=== PATIENT | male | born 1980 | race Caucasian/White ===

== ENCOUNTER 2020-02-26 14:09 | Outpatient (REF) | payer MEDICARE, MEDICAID, SELFPAY ==
[2020-02-26 15:29] LABS: Alanine Aminotransferase 66 U/L (0-40); Albumin Level 4.8 g/dL (3.5-5.0); Alkaline Phosphatase 74 U/L (39-117); Aspartate Amino Transferase 55 U/L (5-37); Bilirubin Direct < 0.2 mg/dL (0.0-0.5); Bilirubin Total 0.2 mg/dL (0.0-1.0); Total Protein 7.5 g/dL (6.5-8.0)
[2020-02-26 16:24] LABS: Phenytoin Dilantin 3.6 ug/mL (10.0-20.0)
== END 2020-02-26 14:10 | disposition home or self-care (01) ==
LOC: HO.LAB 14:09
PROVIDERS: PCP Psychiatry & Neurology Neurology; Visit Provider Psychiatry & Neurology Neurology
DX: G40.909 Epilepsy, unspecified, not intractable, without status epilepticus (principal)
CPT/HCPCS: 80076; 80185

== ENCOUNTER 2020-06-18 10:20 | Outpatient (REF) | payer MEDICARE, MEDICAID, SELFPAY ==
[2020-06-18 11:23] LABS: Alanine Aminotransferase 61 U/L (0-40); Albumin Level 4.6 g/dL (3.5-5.0); Alkaline Phosphatase 70 U/L (39-117); Aspartate Amino Transferase 30 U/L (5-37); Bilirubin Direct 0.2 mg/dL (0.0-0.5); Bilirubin Total 0.3 mg/dL (0.0-1.0); Total Protein 7.1 g/dL (6.5-8.0)
[2020-06-18 12:05] LABS: Phenytoin Dilantin 2.8 ug/mL (10.0-20.0)
== END 2020-06-18 10:21 | disposition home or self-care (01) ==
LOC: HO.LAB 10:20
PROVIDERS: PCP Internal Medicine; Visit Provider Psychiatry & Neurology Neurology
DX: G40.909 Epilepsy, unspecified, not intractable, without status epilepticus (principal)
CPT/HCPCS: 36415; 80076; 80185

== ENCOUNTER 2022-12-16 13:43 | Outpatient (REF) | payer MEDICARE, MEDICAID, SELFPAY ==
[2022-12-16 14:18] LABS: MANUAL DIFF FLAG NO
[2022-12-16 14:26] LABS: Basophils Absolute Auto 0.1 X10*3/uL (0.0-0.2); Basophils Percent Auto 1.4 % (0-2); Eosinophils Absolute Auto 0.1 X10*3/uL (0.0-0.4); Eosinophils Percent Auto 1.6 % (0-4); Hematocrit 45.3 % (42.0-52.0); Hemoglobin 15.6 g/dl (14.0-18.0); Imm Gran Abs Auto 0.02 X10*3/uL (0.00-0.03); Imm Gran Pct Auto 0.3 % (0.0-0.4); Lymphocytes Absolute Auto 1.8 X10*3/uL (1.2-4.9); Lymphocytes Percent Auto 25.2 % (20-40); Mean Corpuscular HGB Conc 34.4 g/dl (31.0-36.0); Mean Corpuscular Hemoglobin 33.8 pg (27.0-33.0); Mean Corpuscular Volume 98.1 fL (80.0-98.0); Mean Platelet Volume 8.4 fL (9.4-12.4); Monocytes Absolute Auto 0.9 X10*3/uL (0.1-1.2); Monocytes Percent Auto 11.8 % (2-11); Neutrophils Absolute Auto 4.4 x10*3/uL (2.0-8.3); Neutrophils Percent Auto 59.7 % (45-73); Platelet Count 274 X10*3/uL (160-400); Red Blood Count 4.62 X10*6/uL (4.60-5.80); Red Cell Distribution Width 12.4 % (11.0-16.0); White Blood Count 7.3 X10*3/uL (4.8-10.8)
[2022-12-16 15:06] LABS: Alanine Aminotransferase 24 U/L (0-40); Albumin Level 4.9 g/dL (3.5-5.0); Alkaline Phosphatase 64 U/L (39-117); Anion Gap 16 (12-20); Aspartate Amino Transferase 35 U/L (5-37); Bilirubin Total 0.2 mg/dL (0.0-1.0); Blood Urea Nitrogen 9 mg/dL (9-16); Calcium 10.4 mg/dL (8.4-10.2); Carbon Dioxide 23 mmol/L (22-29); Chloride 107 mmol/L (96-108); Cholesterol 186 mg/dL (<200); Estimated Glomerular Filt Rate > 60; Glucose Random 81 mg/dL (60-115); HDL Cholesterol 65 mg/dL (>40); LDL Cholesterol Calculated 105 mg/dL (<100); Potassium 4.4 mmol/L (3.3-5.1); Sodium 142 mmol/L (135-145); Total Protein 7.9 g/dL (6.5-8.0); Triglycerides 80 mg/dL (<150)
[2022-12-16 15:20] LABS: TSH reflex Free T4 0.99 uIU/mL (0.32-4.0)
[2022-12-17 03:43] LABS: HIV AB/AG Nonreactive (Nonreactive); HIV Num 1 0.06 S/CO (0.00-0.99); ~HepC Num1 0.05 S/CO (0.00-0.79); ~Hepatitis C Antibody Nonreactive (Nonreactive)
[2022-12-21 12:28] LABS: VITAMIN D (1,25 OH) D3 38 pg/mL; Vit D (1,25-Dihydroxy) Total 38 pg/mL (18-72); Vitamin D (1,25 OH) D2 <8 pg/mL
== END 2022-12-16 13:44 | disposition home or self-care (01) ==
LOC: HO.CHCLDS 13:43
PROVIDERS: Visit Provider Family Medicine
DX: Z11.4 Encounter for screening for human immunodeficiency virus [HIV] (principal); E55.9 Vitamin D deficiency, unspecified; Z79.899 Other long term (current) drug therapy
CPT/HCPCS: 36415; 80053; 80061; 82652; 84443; 85025; 86803; 87389

== ENCOUNTER 2023-01-03 16:12 | Outpatient (REF) | payer MEDICARE, MEDICAID, SELFPAY ==
[2023-01-03 17:28] LABS: MANUAL DIFF FLAG NO
[2023-01-03 17:33] LABS: Basophils Absolute Auto 0.1 X10*3/uL (0.0-0.2); Basophils Percent Auto 1.2 % (0-2); Eosinophils Absolute Auto 0.1 X10*3/uL (0.0-0.4); Hemoglobin 15.8 g/dl (14.0-18.0); Imm Gran Abs Auto 0.03 X10*3/uL (0.00-0.03); Imm Gran Pct Auto 0.4 % (0.0-0.4); Lymphocytes Absolute Auto 2.3 X10*3/uL (1.2-4.9); Lymphocytes Percent Auto 27.6 % (20-40); Mean Corpuscular HGB Conc 33.6 g/dl (31.0-36.0); Mean Corpuscular Hemoglobin 33.1 pg (27.0-33.0); Mean Corpuscular Volume 98.5 fL (80.0-98.0); Mean Platelet Volume 8.9 fL (9.4-12.4); Monocytes Absolute Auto 0.8 X10*3/uL (0.1-1.2); Monocytes Percent Auto 9.4 % (2-11); Neutrophils Percent Auto 60.4 % (45-73); Platelet Count 232 X10*3/uL (160-400); Red Blood Count 4.77 X10*6/uL (4.60-5.80); Red Cell Distribution Width 12.4 % (11.0-16.0); White Blood Count 8.2 X10*3/uL (4.8-10.8)
[2023-01-03 18:19] LABS: Folate 13.8 ng/mL (> or = 4.0); Vitamin B12 337 pg/mL (200-900)
== END 2023-01-03 16:13 | disposition home or self-care (01) ==
LOC: HO.CHCLDS 16:12
PROVIDERS: Visit Provider Family Medicine
DX: D75.89 Other specified diseases of blood and blood-forming organs (principal)
CPT/HCPCS: 36415; 82607; 82746; 85025

== ENCOUNTER 2024-11-26 11:13 | Outpatient (REF) | payer MEDICARE, MEDICAID, SELFPAY ==
--- NOTE | ~2024-11-26 | XR_ITS ---
EXAMINATION: XR RIBS 3 VIEWS MINIMUM WITH CHEST RIGHT HISTORY: R07.89 - Other chest pain COMPARISON: There are no prior studies available for comparison. FINDINGS: A single PA view of the chest and 4 views of the right ribs are submitted. The lungs are expanded and clear. There is no pleural effusion, pneumothorax, or pulmonary vascular congestion. The heart is normal in size. There is a minimally displaced fracture of the right 10th rib. XR/XR ribs RT min 3V w CXR1V IMPRESSION: Minimally displaced fracture of the right 10th rib. The lungs are clear. Electronically signed by: Young Russ MD 11/26/2024 12:31 PM EDT
== END 2024-11-26 11:14 | disposition home or self-care (01) ==
LOC: HO.HMGCX 11:13
PROVIDERS: PCP Internal Medicine; Visit Provider Nurse Practitioner Family
DX: R07.89 Other chest pain (principal)
CPT/HCPCS: 71101; 99202

== ENCOUNTER 2024-11-26 11:13 | Outpatient (AMB) | payer MEDICARE, MEDICAID, SELFPAY ==
--- NOTE | 2024-11-26 11:41 | MHC.OFFWIV ---
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 Pt was getting up from a sitting position, got lightheadedness and Fell to the ground hitting his Chest wall. He does Have h/o COPD with chronic Wheezing. Reports SOB, Pain with moving Air in/out of Lungs, Pain with Standing up and side to side movements. FORMERLY [facility], [facility]–1983 Medical History (Updated 11/26/24 @ 11:59 by Keesha Vanessa NP) Acute chest wall pain Review of Systems Const All systems reviewed & are unremarkable except as noted in HPI and below Physical Exam Vital Signs: Last Vital Signs Pulse 88 11/26/24 11:44 BP 140/80 H 11/26/24 11:44 Pulse Ox 96 11/26/24 11:44 Oxygen Delivery Method Room Air 11/26/24 11:44 BMI result Body Mass Index 25.1 Const General: no acute distress and poor hygiene; No comfortable Orientation/consciousness: patient oriented x3 Chest Chest palpation & inspection: no crepitus, localized rib tenderness with anteroposterior compression (Right side chest wall), no masses and tenderness rib and costochondral junction Resp Effort & Inspection: normal respiratory effort Auscultation: no crackles, no rales, no rhonchi and wheezes scattered wheezes Cardio Heart sounds: S1 normal heart sound present and S2 normal heart sound present Neuro General: patient oriented x3 and moves all extremities Psych Speech and movement: Normal speech and movement present Assessment & Plan Assessment & Plan (1) Acute chest wall pain: Code(s): R07.89 - Other chest pain Plan: Ordered Chest and Ribs Xrays to r/o Fx vs Pneumothorax. Ordered NSAIDs and Acetaminophen for pain relief Ice/Hot and Rest Ordered Flexeril. Orders: Orders XR ribs RT min 3V w CXR1V Today R07.89 - Other chest pain Medications: New acetaminophen 1,000 mg (2 x 500 mg) PO Q6H 30 caps 0RF pain R07.89 - Other chest pain cyclobenzaprine 10 mg PO BEDTIME 14 tabs 0RF Chest wall pain R07.89 - Other chest pain ibuprofen 800 mg PO Q8H 20 tabs 0RF R07.89 - Other chest pain Coding Level of Care Code New Pt Level 4 (44926) Diagnoses Acute chest wall pain R07.89 Time Spent (min) 20
[2024-11-26 11:44] VITALS: BP 140/80; PULSE 88; O2SAT 96; BMI 25.1
--- OUTSIDE RECORDS SUMMARY | 2024-11-26 13:54 | XMS_ITS | Clinical Summary ---
Author Organization [facility] Address [address] [place] [address] Phone Care Team Providers Care Thread Clipper Name Role Phone Nazanin Christianson MD Primary Care Provider [phone] Allergies Active Allergy Reactions Criticality Noted Date Comments Penicillin V Potassium Rash 07/23/2008 Medications folic acid (FOLVITE) 1 mg tablet Take 1 tablet (1,000 mcg total) by mouth 1 (one) time each day. 07/23/2019 Active levETIRAcetam (KEPPRA) 1,000 mg tablet Take 1 tablet (1,000 mg total) by mouth 2 (two) times a day. 01/11/2022 Active levETIRAcetam (KEPPRA) 750 mg tablet Take 1 tablet (750 mg total) by mouth 2 (two) times a day. 03/31/2021 Active OXcarbazepine (TRILEPTAL) 300 mg tablet Take 1 Tab by mouth 2 times daily. 07/17/2019 Active oxyCODONE-acetam inophen (PERCOCET) 5-325 mg per tablet 03/04/2021 Activ e thiamine (Vitamin B-1) 100 mg tablet Take 100 mg by mouth daily. Active traMADoL (ULTRAM) 50 mg tablet Take 1 tablet (50 mg total) by mouth every 6 (six) hours. Max Daily Amount: 200 mg 01/25/2022 Active Active Problems Problem Noted Date Diagnosed Date Lumbar radiculopathy 04/06/2021 Overview (03/13/2024): Pt seems symptomatic from the left L5-S1 disc herniation Last Assessment & Plan: Patient had sudden onset left buttock and posterior thigh pain to the posterior knee starting 03/16/2021 after heavy lifting. On his lumbar MRI he has multiple levels with disc herniations however he seems symptomatic from his left L5-S1 disc herniation. He has no weakness on exam. He has not tried oral steroids, PT, cortisone injections for this acute pain. I gave him a prescription for Decadron x4 days, with Pepcid to protect his stomach, instructed him not to take NSAIDs with the steroids. I gave him a prescription for PT if he can tolerate it, if pain is better after steroids. We reviewed his MRI images in detail, discussed other treatment options like RIVKA, acupuncture, possible left L5-S1 minimally invasive discectomy if pain is not improving. I will review his MRI with Dr. Gonsales to see if she agrees with left L5-S1 minimally invasive discectomy as an option. All questions answered on today's visit. I asked the patient to call with an update after completing his steroids. If he is not improving with time, we can further discuss surgery options, risks and benefits. I reviewed pt's MRI LS with Dr. Gonsales, she will offer left L5-S1 discectomy if he is not getting better with current plan. Seizure ([facility] V24, [facility] V28) 07/23/2008 Surgical History Surgery Date Site/Laterality Comments OTHER SURGICAL HISTORY PROCEDURE: ID CRANIECTOMY HMTMA SUPRATENTORIAL EXTRA/SUBDURAL WISDOM TOOTH EXTRACTION PROCEDURE: HISTORICAL WISDOM TEETH EXTRACTION Medical History Medical History Date Comments Seizures ([facility] V24, [facility] V28) DX:Seizures ([facility]); COMMENT: grand-mal Asthma DX:Asthma Family History Medical History Relation Name Comments Heart attack Father Relation Name Status Comments Father Social History Tobacco Use Types Packs/Day Years Used Date Smoking Tobacco: Every Day Cigarettes Smokeless Tobacco: Never Alcohol Use Standard Drinks/Week Comments No 0 (1 standard drink = 0.6 oz pur e alcohol) Sex and Gender Information Value Date Recorded Sex Assigned at Not on file Legal Sex Male 8:30 PM EST Gender Identity Not on file Sexual Orientation Not on file Obstetrics History Last Filed Vital Signs Vital Sign Reading Time Taken Comments Blood Pressure - - Pulse - - Temperature - - Respiratory Rate - - Oxygen Saturation - - Inhaled Oxygen Concentration - - Weight 101 kg (223 lb) 03/30/2022 3:16 PM EST Height 188 cm (6' 2 ) 03/30/2022 3:16 PM EST Body Mass Index 28.63 03/30/2022 3:16 PM EST Plan of Treatment Health Maintenance Due Date Last Done Comments Hepatitis B Vaccines (1 of 3 - 19+ 3-dose series) 1998 Pneumococcal Vaccine: Pediatrics (0 to 5 Years) and At-Risk Patients (6 to 49 Years) (1 of 2 - PCV) 1998 Colorectal Cancer Screening: Colonoscopy 02/20/2022 HIV Screening 02/20/2022 Hepatitis C Screening 02/20/2022 Medicare Annual Wellness Visit 02/20/2022 Social Influencers of Health Screening 02/20/2022 Depression Screening 03/21/2024 COVID-19 Vaccine (1 - 2023-2 5 season) 2024 Influenza Vaccine (#1) 2024 DTaP,Tdap,and Td Vaccines (2 - Td or Tdap) 06/20/2027 06/19/2017 Cholesterol Screening (Lipid Panel) 12/17/2027 12/16/2022, 05/24/2019 HIB Vaccines Aged Out No longer eligi ble based on patient's age to complete this topic HPV Vaccines Aged Out No longer eligi ble based on patient's age to complete this topic Hepatitis A Vaccines Aged Out No long er eligible based on patient's age to complete this topic IPV Vaccines Aged Out No longer eligi ble based on patient's age to complete this topic MMR Vaccines Aged Out No longer eligi ble based on patient's age to complete this topic Meningococcal ACWY Vaccine Aged Out N o longer eligible based on patient's age to complete this topic Meningococcal B Vaccine Aged Out No l onger eligible based on patient's age to complete this topic RSV Immunization Patients Under 20 months Aged Out No longer eligible b ased on patient's age to complete this topic Varicella Vaccines Aged Out No longer eligible based on patient's age to complete this topic Procedures Procedure Name Priority Date/Time Associated Diagnosis Comments LIPID PANEL Routine 05/24/2019 from Last 3 Months or Most Recently Relevant to Health Maintenance Results * Lipid panel (05/24/2019) LDL/HDL Ratio 3 0 - 4 Triglycerides 122 0 - 150 mg/dL Cholesterol 154 0 - 200 mg/dL HDL 57 >=40 mg/dL LDL Cholesterol 73 0 - 100 mg/dL Blood Venous blood specimen / Unknown us Historical Provider LAB BLOOD ORDERABLES Sona l Result from Last 3 Months or Most Recently Relevant to Health Maintenance Insurance MEDICARE [place]ICAID [place] Care Teams Thread Clipper Relationship Specialty Start Date End Date Nazanin Christianson MD [address] [place] [id number] PCP - General Family Medicine 09/06/24
--- OUTSIDE RECORDS SUMMARY | 2024-11-26 13:54 | XMS_ITS | Encounter Summary ---
Author Organization [employer] Address [address] [facility] [place] [address] Care Team Providers Care Hair Dryer Name Role Phone Nazanin Christianson MD Primary Care Provider [phone] Greer Clemons MD Unavailable [phone] Reason for Visit * Reason Onset Date Comments Call back request 10/18/2023 Encounter Details Date Type Department Care Team (Late st Contact Info) Description 10/18/2023 Telephone [facility] MEDICINE [address] [place] [address] Nazanin Christianson MD [address] [place] [address] Call back request Social History Tobacco Use Types Packs/Day Years Used Date Smoking Tobacco: Every Day Cigarettes Passive Smoke Exposure: Never Smokeless Tobacco: Never Alcohol Use Standard Drinks/Week Comments Never 0 (1 standard drink = 0.6 oz pur e alcohol) Depression Answer Date Recorded Patient Health Questionnaire-9 Score 7 12/16/2022 Housing Stability Answer Date Recorded What is your housing situation today? I have david darden 01/03/[address] you li ve. Do you have problems with any of the following? None of the above 01/03/2023 Food Insecurity Answer Date Recorded Within the past 12 months, y ou worried that your food would run out before you got money to buy more: Never True 01/03/2023 Within the past 12 months,th e food you bought just didn't last and you didn't have enough money to get more: Never True Transportation Answer Date Recorded In the past 12 months, has l ack of transportation kept you from medical appts, meetings, work or from getting things needed for daily living? No 01/03/2023 Utilities Answer Date Recorded In the past 12 months, has t he electric, gas, oil or water company threatened to shut off services in your home? No 01/03/2023 Depression Answer Date Recorded Patient Health Questionnaire-2 Score 1 12/16/2022 Sex and Gender Information Value Date Recorded Sex Assigned at Male 10/27/2022 3:50 PM EDT Legal Sex Male 3:48 PM EDT Gender Identity Male 10/27/2022 3:50 PM EDT Sexual Orientation Don't know 10/27/2022 3: 50 PM EDT documented as of this encounter Miscellaneous Notes * Telephone Encounter - Wing Renee RN - 10/27/2023 12:19 PM EDT Tc to pt to relay normal X-ray and PCP note to start inhale meds and for follow- up. Pt reports muchrelief with medication for COPD and ankle is doing alright. * Telephone Encounter - Rafal Johnson - 10/27/2023 12:07 PM EDT Tc from pt returning phone call for X-ray results. * Telephone Encounter - Wing Renee RN - 10/27/2023 12:00 PM EDT Tc to pt regarding concerns. Pt was wondering why he was on new inhalers prescribed on 10/19. Explained that it was likely from PCP reviewing PFT and assessing pt had COPD and needed these new inhalers. Also reminded pt of upcoming appt for follow-up with PCP on 11/17 at 8;45 am. Pt was apparently unaw are of this appt. Pt also inquired about recent X-ray results. Found that X-ray results were normal in chart, attempted to relay to pt. Unable to reach pt, left message for pt to call back. 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 * Telephone Encounter - Justin Hernandez - 10/18/2023 4:29 PM EDT Tc from pt calling in regards to pulmonary function test. Pt had test done at [facility] ([address] [place] [address]), but after he had already got it done he received a call from [facility] for the same test. Pt wanted to clarify if there was a mistake in the addresses for the order. Please contact pt at [phone]. documented in this encounter Plan of Treatment Not on file documented as of this encounter Visit Diagnoses Not on filedocumented in this encounter Additional Health Concerns Assessment Noted Time PHQ-9 Depression Total Score: 7 12/17/19 23 1:05 PM EDT documented as of this encounter Care Teams Hair Dryer Relationship Specialty Start Date End Date Nazanin Christianson MD [address] [place] [phone] PCP - General Family Medicine 12/16/22 Greer Clemons MD [address] [place] [address] [place] [address] Neurology 12/16/22 documented as of this encounter
--- OUTSIDE RECORDS SUMMARY | 2024-11-26 13:54 | XMS_ITS | Encounter Summary ---
Author Organization [employer] Address [address] [facility] [address] [place] [address] Care Team Providers Care Hand Tube Bender Name Role Phone Nazanin Christianson MD Primary Care Provider [phone] Greer Clemons MD Unavailable [phone] Reason for Visit * Reason Onset Date Comments New Patient 11/04/2022 Encounter Details Date Type Department Care Team ([facility] st Contact Info) Description 11/04/2022 Telephone [facility] MEDICINE [address] [place], [place] [phone] Jass Don MD [address] [place], [place] [phone] New Patient Social History Tobacco Use Types Packs/Day Years Used Date Smoking Tobacco: Never Assessed Sex and Gender Information Value Date Recorded Sex Assigned at Male 10/27/2022 3:50 PM EDT Legal Sex Male 3:48 PM EDT Gender Identity Male 10/27/2022 3:50 PM EDT Sexual Orientation Don't know 10/27/2022 3: 50 PM EDT documented as of this encounter Miscellaneous Notes * Telephone Encounter - Rafal Velasco Alex - 11/04/2022 12:55 PM EDT PAR Rafal Velasco called pt to Offer [employer]ATOR ASSEMBLER appt. Pt demographics and insurance information were verified. Pt reports the following medical conditions: Epilepsy Pt is not taking any medication at this time. Pt given [employer]AB[employer]IC[employer] ASSEMBLER appt with Dr. Nazanin Christianson on 12/16/2022 @ 1:00 pm. Pt will be sent appt reminder card and medical release form and agrees to complete and to return to medical records prior to [employer] ASSEMBLER appt. documented in this encounter Plan of Treatment Not on file documented as of this encounter Visit Diagnoses Not on filedocumented in this encounter Care Teams Hand Tube Bender Relationship Specialty Start Date End Date Nazanin Christianson MD [address] [place] [phone] PCP - General Family Medicine 12/16/22 Greer Clemons MD [address] [place] [phone] Neurology 12/16/22 Casie Ortiz MD [address] [place] [id number] Surgeon Thoracic Surgery 08/25/23 08/30/23 documented as of this encounter
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
--- OUTSIDE RECORDS SUMMARY | 2024-11-26 13:55 | XMS_ITS | Encounter Summary ---
Author Organization [employer] Address [address] [place] [address] Care Team Providers Care Product Manager Name Role Phone Nazanin Christianson MD Primary Care Provider [phone] Greer Clemons MD Unavailable [phone] Reason for Visit * Reason Onset Date Comments Med Refill 11/15/2024 Encounter Details Date Type Department Care Team (Late st Contact Info) Description 11/15/2024 Telephone [facility] MEDICINE [address] [place] [address] Nazanin Christianson MD [address] [place] [address] Med Refill Social History Tobacco Use Types Packs/Day Years [...] encounter Miscellaneous Notes * Telephone Encounter - Alvina Mortensen LPN - 11/15/2024 9:45 AM EDT Medication not prescribed by PCP. * Telephone Encounter - Gloria Morgan - 11/15/2024 9:29 AM EDT TC from pt requesting medication refill. Medications needing refill : - thiamine (,Vitamin B-1,) 100 MG tablet To be sent to: - [id number] - [place] - [address] [facility] [address] [facility] [address] documented in this encounter Plan of Treatment Not on file documented as of this encounter Visit Diagnoses Not on filedocumented in this encounter Additional Health Concerns Assessment Noted Time PHQ-9 Depression Total Score: 0 01/27/20 24 8:38 AM EST documented as of this encounter Care Teams Product Manager Relationship Specialty Start Date End Date Nazanin Christianson MD [address] [place] [address] PCP - General Family Medicine 12/16/22 Greer Clemons MD [address] [place] [address] [place] [address] Neurology 12/16/22 documented as of this encounter
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
== END 2024-11-26 12:41 | disposition home or self-care (01) ==
PROVIDERS: PCP Internal Medicine; Visit Provider Nurse Practitioner Family
DX: R07.89 Other chest pain (principal)

== ENCOUNTER → 2024-11-26 12:02 | Outpatient (BNV) | payer MEDICARE, MEDICAID, SELFPAY | PROVIDERS: PCP Internal Medicine; Visit Provider Radiology Diagnostic Radiology | DX: S22.31XA Fracture of one rib, right side, initial encounter for closed fracture (principal) | CPT/HCPCS: 71101 ==

== ENCOUNTER 2024-12-17 08:16 | Outpatient (AMB) | payer MEDICARE, MEDICAID, SELFPAY ==
--- OUTSIDE RECORDS SUMMARY | 2024-12-17 08:27 | XMS_ITS | Clinical Summary ---
Author Organization [facility] Address [address] [place] [address] Phone Care Team Providers Care Craft Worker Name Role Phone Nazanin Christianson MD Primary Care Provider [phone] Allergies Active Allergy Reactions Criticality Noted Date [...] not getting better with current plan. Seizure ([facility] V24, [facility] V28) 07/23/2008 Surgical History Surgery Date Site/Laterality Comments OTHER SURGICAL HISTORY PROCEDURE: ME CRANIECTOMY HMTMA SUPRATENTORIAL EXTRA/SUBDURAL WISDOM TOOTH EXTRACTION PROCEDURE: HISTORICAL WISDOM TEETH EXTRACTION Medical History Medical History Date Comments Seizures ([facility] V24, [facility] V28) DX:Seizures (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
--- OUTSIDE RECORDS SUMMARY | 2024-12-17 08:27 | XMS_ITS | Encounter Summary ---
Author Organization [employer] Address [address] [facility] [address] 7[address] [place] [address] Care Team Providers Care Development Representative Name Role Phone Nazanin Christianson MD Primary Care Provider [phone] Greer Clemons MD Unavailable + [phone] Reason for Visit * Reason Onset Date Comments Call back request 10/18/2023 Encounter Details Date Type Department Care Team (Late st Contact Info) Description 10/18/2023 Telephone [facility] MEDICINE [address] [place] [address] Nazanin Christianson MD [address] [place] [address] Call back request Social History Tobacco Use [...] AM EDT Tc from pt requesting status education dean. * Telephone Encounter - Justin Hernandez - 10/18/2023 4:29 PM EDT Tc from pt calling in regards to pulmonary function test. Pt had test done at [facility] ([address] [place] [address]), but after he had already got it done he received a call from [facility] for the same test. Pt wanted to clarify if there was a mistake in the addresses for the order. Please contact pt at [phone]. documented in this encounter Plan of Treatment Not on file documented as of this encounter Visit Diagnoses Not on filedocumented in this encounter Additional Health Concerns Assessment Noted Time PHQ-9 Depression Total Score: 7 12/17/19 23 1:05 PM EDT documented as of this encounter Care Teams Development Representative Relationship Specialty Start Date End Date Nazanin Christianson MD [address] [place] [id number] PCP - General Family Medicine 12/16/22 Greer Clemons MD [address] [place] [address] [place] [address] Neurology 12/16/22 documented as of this encounter
--- OUTSIDE RECORDS SUMMARY | 2024-12-17 08:27 | XMS_ITS | Encounter Summary ---
Author Organization [employer] Address [address] [facility] 7t [place] [address] Care Team Providers Care Extension Associate Name Role Phone Nazanin Christianson MD Primary Care Provider [phone] Greer Clemons MD Unavailable + [phone] Reason for Visit * Reason Onset Date Comments New Patient 11/04/2022 Encounter Details Date Type Department Care Team ([facility] st Contact Info) Description 11/04/2022 Telephone [facility] MEDICINE [address] [place], [place] [phone] Jass Don MD [address] [place], [place] [phone] New Patient Social History Tobacco Use Types [...] PAR Rafal Velasco called pt to Offer ASSESSMENT SERVICES MANAGER appt. Pt demographics and insurance information were verified. Pt reports the following medical conditions: Epilepsy Pt is not taking any medication at this time. Pt given ASSESSMENT SERVICES MANAGER appt with Dr. Nazanin Christianson on 12/16/2022 @ 1:00 pm. Pt will be sent appt reminder card and medical release form and agrees to complete and to return to medical records prior to ASSESSMENT SERVICES MANAGER appt. documented in this encounter Plan of Treatment Not on file documented as of this encounter Visit Diagnoses Not on filedocumented in this encounter Care Teams Extension Associate Relationship Specialty Start Date End Date Nazanin Christianson MD [address] [place] [address] PCP - General Family Medicine 12/16/22 Greer Clemons MD [address] [place] [address] Neurology 12/16/22 Casie Ortiz MD [address] [place] [address] Surgeon Thoracic Surgery 08/25/23 08/30/23 documented as of this encounter
--- OUTSIDE RECORDS SUMMARY | 2024-12-17 08:28 | XMS_ITS | Encounter Summary ---
Author Organization [employer] Address [address] [facility] [place] [address] Care Team Providers Care Solar Project Manager Name Role Phone Nazanin Christianson MD Primary Care Provider [phone] Greer Clemons MD Unavailable + [phone] Reason for Visit * Reason Onset Date Comments Med Refill 11/15/2024 Encounter Details Date Type Department Care Team (Late st Contact Info) Description 11/15/2024 Telephone [facility] MEDICINE [address] [place] [address] Nazanin Christianson MD [address] [place] [address] Med Refill Social History Tobacco Use Types [...] MG tablet To be sent to: - [id number] - [place] - [address] [facility] [address] [facility] [address] documented in this encounter Plan of Treatment Not on file documented as of this encounter Visit Diagnoses Not on filedocumented in this encounter Additional Health Concerns Assessment Noted Time PHQ-9 Depression Total Score: 0 01/27/20 24 8:38 AM EST documented as of this encounter Care Teams Solar Project Manager Relationship Specialty Start Date End Date Nazanin Christianson MD [address] [facility] [place] [address] PCP - General Family Medicine 12/16/22 Greer Clemons MD [address] [place] [address] [place] [address] Neurology 12/16/22 documented as of this encounter
--- OUTSIDE RECORDS SUMMARY | 2024-12-17 08:28 | XMS_ITS | Clinical Summary ---
Author Organization [employer] Address [address] [facility] 7t [place] [address] Care Team Providers Care Senior Asset Manager Name Role Phone Nazanin Christianson MD Primary Care Provider [phone] Greer Clemons MD Unavailable + [phone] Allergies Active Allergy Reactions Criticality Noted Date [...] obstructive pulmonary disease, unspecified COPD type (CMS/HCC) ([facility]) Place 1 capsule (18 mcg) into inhaler and inhale in the morning. 30 capsule 11 4 Active folic acid (Folvite) 1 MG tablet Take 1 tablet (1,000 mcg) by mouth Once per day. 120 tablet 3 4 Active albuterol 108 (90 Base) MCG/ACT inhalerIndicatio ns:Chronic obstructive pulmonary disease, unspecified COPD type (CMS/HCC) ([facility]) Inhale 2 puffs every 4 (four) hours [...] obstructive pulmonary disease, unspecified COPD type (CMS/HCC) (HCC) Take 1 tablet (50 mg) by mouth [...] of the ankle, knee, and fibula at [facility] - Prescribe diclofenac for pain relief - [...] prednisone for 5 days - Refer to station agent for further evaluation of possible COPD - [...] Center 01/27/2024 8:45 AM Nazanin Christianson MD [facility] Chronic cough 10/14/2023 Assessment & Plan [...] his incentive spirometer daily. Of note, called [place] office of Dr. Ortiz, per office, was [...] Consider x ray if persistent. Seizure disorder (CMS/HCC) 12/16/2022 Assessment & Plan (07/31/2024 9:45 AM EDT): Following with neurology, monitor labs for AED. Assessment & Plan (12/16/2022 1:42 PM EDT): Following in [facility] Neurology, reviewed meds, will send screening labs [...] Type Department Care Team Description 11/15/2024 Telephone [facility] MEDICINE [address] [place] [phone] Nazanin Christianson MD Med Refill from Last 3 Months Immunizations Immunization Administration [...] of 2 - PCV) 1998 COVID-19 Vaccine (2023-2 5 season) 2024 Influenza Vaccine (#1) 2024 [...] PM EDT) Hepatitis C Antibody Nonreactive Nonreactive [facility] Comment:Antibodies to HCV no t detected; does not exclude early acuteHCV infection. Blood 12/16/2022 1:48 PM EDT 12/16/2022 2:13 PM EDT us Nazanin Christianson MD LAB BLOOD ORDERABLES Final Re sult Performing Organization Address [facility] Co de Phone Number [facility] [address] [place] [address] [phone] * HIV Ab/Ag (PETER CERDA) (12/16/2022 1:48 PM EDT) HIV AB/AG Nonreactive Nonreactive [facility] Comment:HIV-1 p24 Ag and/or HIV-1/HIV-2 Ab not detected.A test result that is nonreactive does not exclude thepossibility of exposure to or infection with HIV-1 and/orHIV-2. Nonreactive results in this assay for individualswith prior exposure to HIV-1 and/or HIV-2 may be due toantigen and antibody levels that are below the limit ofdetection of this assay.The [employer] HIV Ag/Ab Combo assay result andsupplemental assay results should be interpreted inconjunction with the patient's clinical presentation,history and other laboratory results. If the results areinconsistent with clinical evidence, additional testing issuggested to confirm the result. 12/16/2022 1:48 PM EDT 12/16/2022 2:13 PM EDT us Nazanin Christianson MD LAB BLOOD ORDERABLES Final Re sult Performing Organization Address [facility]/ZIP Co de Phone Number [facility] [address] [place] [phone] * (ABNORMAL) Lipid Panel, Standard (12/16/2022 1:48 PM EDT) Triglycerides 80 <150 mg/dL [facility] Comment:Desirable Triglyceri de: less than 150 mg/dLBorderline High Triglyceride 150-199 mg/dLHigh Triglyceride: 200-499 mg/dLVery High Triglyceride: greater than or equal to 5OO mg/dL Cholesterol 186 <200 mg/dL [facility] Comment:Desirable Cholestero l: less than 200 mg/dLBorderline High Cholesterol: 200-239 mg/dLHigh Cholesterol: greater than 239 mg/dL LDL Cholesterol Calculated 105(H) <100 mg/dL [facility] Comment:Desirable LDL: less than 100 mg/dLNear Optimal/Above Optimal LDL: 110- 129 mg/dLBorderline High LDL: 130-159 mg/dLHigh LDL: 160-189 mg/dLVery High LDL: greater than or equal to 190 mg/dL HDL Cholesterol 65 >40 mg/dL [facility] Comment:Desirable HDL: great er than 40 mg/dL Note: This HDL assay may give artificially low results in patients with liver disease. Blood Venous blood specimen / Unknown 12/16/2022 1:48 PM EDT 12/16/2022 2:13 PM EDT us Nazanin Christianson MD LAB BLOOD ORDERABLES Final Re sult [facility] [address] [place] [phone] from Last 3 Months or Most Recently Relevant to Health Maintenance Insurance [facility] [employer] MEDICARE Care Teams Senior Asset Manager Relationship Specialty Start Date End Date Nazanin Christianson MD [address] [facility] [place] [address] PCP - General Family Medicine 12/16/22 Greer Clemons MD [address] [place] [address] [place] [address] Neurology 12/16/22
--- OUTSIDE RECORDS SUMMARY | 2024-12-17 08:28 | XMS_ITS | Encounter Summary ---
Author Organization [employer] Address [address] [facility] [address] [facility] [address] [address] 7t [place] [address] Care Team Providers Care Orthotic And Prosthetic Technician Name Role Phone Nazanin Christianson MD Primary Care Provider [phone] Greer Clemons MD Unavailable [phone] Reason for Visit * Reason Onset Date Comments ER Follow-up 08/26/2023 Encounter Details Date Type Department Care Team (Late st Contact Info) Description 08/26/2023 Telephone [facility] MEDICINE [address] [place] [address] Nazanin Christianson MD [address] [place] [address] ER Follow-up Social History Tobacco Use Types [...] pt in the chest. Pt went to [facility] and got an MRI, C-ray, and blood [...] agreement with plan. Requested ED note from [facility] stat, fax confirmation received. * Telephone Encounter - Rfaal Johnson - 08/29/2023 9:08 AM EDT Tc [...] documented as of this encounter Care Teams Orthotic And Prosthetic Technician Relationship Specialty Start Date End Date Nazanin Christianson MD [address] [place] [address] PCP - General Family Medicine 12/16/22 Greer Clemons MD [address] [place] [phone] Neurology 12/16/22 Casie Ortiz MD [address] [place] [address] Surgeon Thoracic Surgery 08/25/23 08/30/23 documented as of this encounter
--- NOTE | 2024-12-17 08:41 | A.OFFVIS_ITS ---
Intake Visit Reasons: 6M Allergies Penicillins Allergy (Unknown, Verified 12/17/24 08:46) Unknown Medication List - Last Reconciled 12/17/24 by Paola Adams CNP acetaminophen 1,000 mg (2 x 500 mg) PO Q6H cyclobenzaprine 10 mg PO BEDTIME fluticasone propion-salmeterol 230-21 mcg/actuation (Advair HFA) 2 puffs inhalation folic acid 1 mg PO DAILY ibuprofen 800 mg PO Q8H levetiracetam 1,000 mg PO BID oxcarbazepine orally 1 tablet in the morning and 2 tablets at bedtime; thiamine HCl (vitamin B1) (Vitamin B-1) 100 mg PO DAILY 90 days HPI Comments Details: 44-year-old man with h/o alcohol and marijuana abuse and seizure disorder. Seizures involved a warning of head cano feeling leading to passing out or just getting confused. Larger ones involved shaking all over and sometime bitten cheek. He was doing okay. He was taking oxcarbazepine and levetiracetam, no medication side effects. No seizures or spells. Sleep was up and down. [facility] Medical History (Updated 12/17/24 @ 08:44 by Paola Adams CNP) Acute chest wall pain Review of Systems Const Denies chills, Denies daytime sleepiness, Reports difficulty sleeping, Denies fatigue, Denies fever(s), Denies frequent falls, Denies headache(s), Denies increased appetite, Denies poor appetite, Denies snoring, Denies weakness, Denies weight gain and Denies weight loss Eyes Denies loss of vision ENT Denies vertigo, Denies dizziness and Denies headache(s) Card Denies chest pain at rest, Denies chest pain with activity, Denies syncope, Denies leg edema and Denies palpitations Resp Denies snoring GI Denies constipation, Denies heartburn, Denies diarrhea and Denies nausea Denies urinary frequency, Denies urinary incontinence and Denies urinary urgency Musc Denies abnormal gait, Denies numbness and Denies tingling Skin/Breast Denies dry skin and Denies rash Neuro Denies abnormal gait, Denies vertigo, Denies dizziness, Denies syncope, Denies frequent falls, Denies headache(s), Denies lack of coordination, Denies loss of vision, Denies memory loss, Denies numbness, Denies restless legs, Denies seizure-like activity, Denies tingling, Denies paresthesias, Denies tremor(s) and Denies weakness Psych Denies anxiety, Denies depression, Denies auditory hallucinations, Denies memory loss, Denies visual hallucinations and Denies suicidal ideation Endo Denies fatigue and Denies palpitations Physical Exam Const Other: General Appearance:? normal, in no acute distress. Skin:? no rashes, no significant birthmarks. Heart:? S1, S2 normal, no murmurs. Lungs:? clear anteriorly and posteriorly. Extremities:? no edema. Psych:? alert, oriented, cognitive function intact, cooperative with exam. Neuro Other: Mental Status:?Normal attention, orientation, memory and affect.? Cranial Nerves:?Pupils are equal, round and reactive to light. External occular muscles are intact. Visual horner are full. Face is symmetrical. Facial sensations are normal. Tongue is midline. Palate elevates symmetrically. Shoulder shrugging is normal. Hearing to bedside conversation is normal. Sensory Exam:?....? Coordination:?No ataxia,?no titubation.? Gait Exam: Within normal limits. Extrapyramidal System:?No tremor, rigidity with normal facial expressions.? Pronator Drift:?Not present.? Involuntary Movements:?No tremors seen.? Speech:?Normal.? Results Reviewed Results Reviewed: Amb EEG at [facility] in Mar 2018: abnormal with left frontal sharps associated with an episode of seizure Routine EEG in office in 2018: [facility] Routine EEG in office in August 2014: [facility] MRI brain WO at [facility] in 2010: [facility] Amb EEG in [facility] in 2014: OK with no events reported. Assessment & Plan Assessment & Plan (1) Epilepsy: Code(s): G40.909 - Epilepsy, unspecified, not intractable, without status epilepticus Category: Medical Qualifiers: Epilepsy type: unspecified Intractability: not intractable Status epilepticus: without status epilepticus Qualified Code(s): G40.909 - Epilepsy, unspecified, not intractable, without status epilepticus Plan: Continue oxcarbazepine 600mg 1 tablet in the morning and 2 tablets at bedtime. Continue levetiracetam 1000mg 1 tablet twice a day. Continue thiamine 100mg 1 tablet daily. Continue folic acid 1mg 1 tablet daily. Plan Meds tried: Dilantin, Oxcarbazepine, Depakote Medications: Changed From folic acid 1 mg PO DAILY To folic acid 1 mg PO DAILY 90 tabs 1RF 90 days Coding Level of Care Code Est Pt Level 4 (74492) Diagnoses Nonintractable epilepsy without status epilepticus, unspecified epilepsy type G40.909 Epilepsy type: unspecified Intractability: not intractable Status epilepticus: without status epilepticus
== END 2024-12-17 08:52 | disposition home or self-care (01) ==
LOC: HO.HSM 08:17
PROVIDERS: PCP Internal Medicine; Referring Provider Internal Medicine; Visit Provider Registered Nurse
DX: G40.909 Epilepsy, unspecified, not intractable, without status epilepticus (principal)
CPT/HCPCS: 99214

== ENCOUNTER → 2024-12-17 08:16 | Outpatient (BNVA) | payer MEDICARE, MEDICAID, SELFPAY | PROVIDERS: PCP Internal Medicine; Referring Provider Internal Medicine; Visit Provider Registered Nurse | DX: G40.909 Epilepsy, unspecified, not intractable, without status epilepticus (principal); F10.10 Alcohol abuse, uncomplicated; F12.10 Cannabis abuse, uncomplicated | CPT/HCPCS: 99212 ==

== ENCOUNTER 2025-03-18 09:57 | Emergency (ER) | payer MEDICARE, MEDICAID, SELFPAY ==
[2025-03-18 10:43] VITALS: BP 153/87; PULSE 79; RESP 16; TEMP 36.7; O2SAT 93; BMI 27.4
--- NOTE | 2025-03-18 10:47 | ED.GENADULT ---
HPI - General Adult General Chief complaint: Skin/Abscess/Foreign Body Stated complaint: Cyst On Back- Causing Pain, Trouble Sleeping Time Seen by Provider: 03/18/25 14:25 Source: patient, RN notes reviewed and other Mode of arrival: ambulatory Limitations: no limitations History of Present Illness ED Provider: Patricia Richter PA-C HPI narrative: ? Patient reports a cyst on the mid-back (right above T7 region, no over spinous process) that has been present since age 13. ? Two nights ago the lesion became acutely painful after the patient sat in a chair for about an hour with the area pressed against the seat back. ? Describes the area as ?black and blue? and ?screaming? in pain; baseline pain normally 1/10, currently severe. ? No prior home treatments attempted. ? States lesion is ?painful? and ?messy.? ? Denies any other self-care or interventions. ? Patient prefers procedure performed outside of a room due to not wanting to wait. NO IVDU Related Data Home Medications ?Medication ?Instructions ?Recorded ?Confirmed fluticasone propionate 230 2 puff inhalation 11/26/24 mcg-salmeterol 21 mcg/actuation HFA inhaler (Advair HFA) Previous Rx's ?Medication ?Instructions ?Recorded thiamine HCl (vitamin B1) 100 mg 100 mg PO DAILY 90 days #90 tabs 11/16/24 tablet (Vitamin B-1) acetaminophen 500 mg capsule 1,000 mg (2 x 500 mg) PO Q6H pain 11/26/24 #30 caps cyclobenzaprine 10 mg tablet 10 mg PO BEDTIME Chest wall pain 11/26/24 #14 tabs ibuprofen 800 mg tablet 800 mg PO Q8H #20 tabs 11/26/24 folic acid 1 mg tablet 1 mg PO DAILY 90 days #90 tabs 12/17/24 oxcarbazepine 600 mg tablet See Rx Instructions PO .COMPLEX 90 02/12/25 days #270 tabs levetiracetam 1,000 mg tablet 1,000 mg PO BID 90 days #180 tabs 02/27/25 sulfamethoxazole 800 1 tab PO BID #14 tabs 03/18/25 mg-trimethoprim 160 mg tablet (Bactrim DS) Allergies Allergy/AdvReac Type Severity Reaction Status Date / Time Penicillins Allergy Unknown Unknown Verified 03/18/25 10:46 Review of Systems Review of Systems: Yes all other systems are reviewed and are negative PMFSH Past Medical History Attestation statement: The following information was validated with the patient. Source: nursing notes reviewed Medical History Acute chest wall pain Physical Exam ED Exam Exam: Skin: Approximately 3 cm non fluctuant cyst with overlying ecchymosis on mid-back. Tender to palpation. to the left of spine obese, no distress, no other rashes on skin, no respiratory distress, no midline tenderness step-offs or deformties of spine. Vital Signs: Vital Signs - 24 hr 03/18/25 10:43 Temperature 98.1 F Pulse Rate 79 Respiratory Rate 16 Blood Pressure 153/87 H Pulse Oximetry 93 Oxygen Delivery Method Room Air BMI result Body Mass Index 27.4 Course Course Course Narrative: Rapid medical examination performed in triage by Tana Burr PA-C: Patient is a 44 year old male presenting to the emergency department with a mid back cyst vs. abscess. Patient states he has had this cyst on his back for years and recently it has started to bother him / grow. Detailed physical exam and review of systems are deferred to the summer nanny. Patient placed back in the waiting room pending room availability. Medical Decision Making Medical Decision Making MDM Narrative: Patient requested to get seen in hallway as he did not want to wait for a room. Aspiration of the cyst was attempted but unsuccessful, with no purulent material identified. Therefore, incision and drainage (I&D) was deferred at this time. The plan is to initiate warm compresses and oral antibiotics, with outpatient I&D to be performed if the lesion does not improve or if purulence develops. This approach is intended to reduce infection risk and facilitate resolution prior to procedural intervention. Citation: Oral antibiotics and warm compresses are appropriate initial management for inflamed cysts when no purulent collection is present; I&D is deferred until purulence is identified. Problem #1: Inflamed epidermal inclusion cyst, mid-back Assessment: Long-standing (since age 13) epidermal inclusion cyst now acutely inflamed and painful after recent mechanical irritation. Exam shows 3 cm fluctuant, tender lesion with discoloration. Plan: - Perform local anesthetic block. - Incision & drainage at bedside, place packing. - Send purulent material for culture. - Start trimethoprim-sulfamethoxazole DS (Bactrim DS). Citation: TMP-SMX is recommended as an oral antibiotic regimen after I&D of inflamed cysts when CA-MRSA is a concern, reducing treatment failure rates. - Provide wound care instructions and return precautions. - Outpatient follow-up as needed. Differential Diagnosis Differential Diagnoses: The differential diagnosis associated with the presentation includes abscess sebaceous cyst cellulitis Admission/Observation Consideration of admission/observation: Escalation of care including admission/observation considered Tests considered The following testing was considered but not selected: soft tissue ultrasound Prescription Management I considered prescription management with: Antibiotic Chronic Conditions Patient?s care impacted by: Other Social Determinants Patient?s care significantly limited by Social Determinants of Health including: Unemployment Discharge Plan Discharge Clinical Impression: Abscess of back Patient Disposition: Home, Self-Care Instructions: Abscess (ED) Additional Instructions: You have an abscess on your back that is a sabeceous cyst. This requires an excision. We did a puncture aspiration to see if I could give you minor relief, but there was no purulent drainage from it. it is infected. You have elected not to wait for an available room to have this procedure done here. You may return to have this done here or go to a local urgent care facility which should be able to do this procedure too. As it is infected, I will place your on oral antibiotic. At home, Please do moist heat compresses to the area, 15-20 mins 4-5x a day. Return for concerns. Prescriptions: New sulfamethoxazole-trimethoprim [Bactrim DS] 800-160 mg tablet 1 tab PO BID Qty: 14 0RF No Action thiamine HCl (vitamin B1) [Vitamin B-1] 100 mg tablet 100 mg PO DAILY 90 Days Qty: 90 1RF oxcarbazepine 600 mg tablet See Rx Instructions PO .COMPLEX 90 Days Qty: 270 1RF Rx Instructions: orally 1 tablet in the morning and 2 tablets at bedtime; levetiracetam 1,000 mg tablet 1,000 mg PO BID 90 Days Qty: 180 1RF folic acid 1 mg tablet 1 mg PO DAILY 90 Days Qty: 90 1RF fluticasone propion-salmeterol [Advair HFA] 230-21 mcg/actuation HFA aerosol inhaler 2 puff inhalation cyclobenzaprine 10 mg tablet 10 mg PO BEDTIME Qty: 14 0RF ibuprofen 800 mg tablet 800 mg PO Q8H Qty: 20 0RF acetaminophen 500 mg capsule 1,000 mg PO Q6H Qty: 30 0RF Interventions: ED Discharge Assessment Last Done: 03/18/25 15:55 Discharge Date/Time: 03/18/25 15:56 Print Language: [place] Citizen
[2025-03-18 15:55] VITALS: BP 153/87; PULSE 79; RESP 16; TEMP 36.7; O2SAT 93
--- OUTSIDE RECORDS SUMMARY | 2025-03-18 16:46 | XMS_ITS | Clinical Summary ---
Author Organization [facility] Address [address] [place] [address] Phone Care Team Providers Care Delivery Supervisor Name Role Phone Nazanin Christianson MD Primary Care Provider [phone] Allergies Active Allergy Reactions Criticality Noted Date Comments Penicillin 01/09/2025 Penicillin G 12/16/2022 Penicillin V Potassium Rash 07/23/2008 Medications folic acid (FOLVITE) 1 mg tablet Take 1 tablet (1,000 mcg total) by mouth 1 (one) time each day. 0 Active levETIRAcetam (KEPPRA) 1,000 mg tablet Take 1 tablet (1,000 mg total) by mouth 2 (two) times a day. 2 Active levETIRAcetam (KEPPRA) 750 mg tablet Take 1 tablet (750 mg total) by mouth 2 (two) times a day. 2 Active OXcarbazepine (TRILEPTAL) 300 mg tablet Take 1 Tab by mouth 2 times daily. 0 Active oxyCODONE-aceta minophen (PERCOCET) 5-325 mg per tablet 1 Active thiamine (Vitamin B-1) 100 mg tablet Take 100 mg by mouth daily. Active traMADoL (ULTRAM) 50 mg tablet Take 1 tablet (50 mg total) by mouth every 6 (six) hours. Max Daily Amount: 200 mg 2 Active albuterol HFA (PROAIR HFA ; PROVENTIL HFA ; VENTOLIN HFA) 90 mcg/actuation inhaler Inhale 2 puffs by mouth Every 4 hours as needed. 5 07/31/19 26 Active Pulmicort Flexhaler 90 mcg/actuation inhaler INHALE 1 PUFF IN THE MORNING AND AT BEDTIME . RINSE MOUTH WITH WATER AFTER USE TO REDUCE AFTER TASTE AND INCIDENCE OF CANDIDIASIS. DO NOT SWALLOW 5 Active umeclidinium-vi lanteroL (Anoro Ellipta) 62.5-25 mcg/actuation inhaler Inhale 1 puff by mouth 1 (one) time each day. 3 each 3 5 01/10/20 26 Active Active Problems Problem Noted Date Diagnosed [...] not getting better with current plan. Seizure 07/23/2008 Encounters Date Type Department Care Team Description 01/09/2025 10:12 AM EDT - 01/09/2025 11:59 PM EDT Hospital Encounter [facility] Xray [address] [place] [address] Dyspnea, unspecified Discharge Disposition: Home or Self Care 01/09/2025 9:00 AM EDT Consult Pulmonology - [place] [address] [facility] [address] [place] [id number] Qian Duarte MD Dyspnea, unspecified type (Primary Dx); Chronic obstructive pulmonary disease, unspecified COPD type (CMS/HCC V24, CMS/HCC V28); Closed fracture of one rib of right side with routine healing, subsequent encounter; Smoker 01/09/2025 Results Follow-Up Pulmonology - [place] [address] [facility] [address] [place] [phone] Qian Duarte MD from Last 3 Months Surgical History Surgery Date Site/Laterality Comments OTHER SURGICAL HISTORY PROCEDURE: SC CRANIECTOMY HMTMA SUPRATENTORIAL EXTRA/SUBDURAL WISDOM TOOTH EXTRACTION PROCEDURE: HISTORICAL WISDOM TEETH EXTRACTION Medical History Medical History Date Comments Seizures (CMS/HCC V24, CMS/HCC V28) DX:Seizures ([facility]); COMMENT: grand-mal Asthma DX:Asthma Family History Medical [...] on file Sexual Orientation Not on file Last Filed Vital Signs Vital Sign Reading Time Taken Comments Blood Pressure 151/94 01/09/2025 8:52 AM EDT Pulse 85 01/09/2025 8:52 AM EDT Temperature 35.8 C (96.4 F) 01/09/2025 8:52 AM EDT Respiratory Rate - - Oxygen Saturation 95% 01/09/2025 8:52 AM EDT Inhaled Oxygen Concentration - - Weight 104 kg (229 lb) 01/09/2025 8:52 AM EDT Height 188 cm (6' 2 ) 03/30/2022 3:16 PM EST Body Mass Index 29.4 03/30/2022 3:16 PM EST Plan of Treatment Upcoming Encounters Date Type Department Care Team (Late st Contact Info) Description 07/10/2025 10:15 AM EDT Office Visit Pulmonology - [address] [place] [address] [facility] [place] [address] Health Maintenance Due Date Last Done Comments Colorectal Cancer Screening: Colonoscopy 1979 Hepatitis B Vaccines (1 of 3 - 19+ 3-dose series) 1998 Pneumococcal Vaccine: Pediatrics (0 to 5 Years) and At-Risk Patients (6 to 49 Years) (1 of 2 - PCV) 1998 HPV Vaccines (1 - 3-dose SCD M series) 2006 HIV Screening 02/20/2022 Hepatitis C Screening 02/20/2022 Medicare Annual Wellness Visit 02/20/2022 Social Influencers of Health Screening 02/20/2022 Depression Screening 03/21/2024 COVID-19 Vaccine (1 - 2024-2 6 season) 2024 Influenza Vaccine (#1) 2024 DTaP,Tdap,and [...] Procedure Name Priority Date/Time Associated Diagnosis Comments XR CHEST 2 VIEWS Routine 01/09/2025 10:3 0 AM EDT Dyspnea, unspecified LIPID PANEL Routine 05/24/2019 from Last 3 Months or Most Recently Relevant to Health Maintenance Results * XR Chest 2 Views (01/09/2025 10:30 AM EDT) Anatomical Region Laterality Modality Body Radiographic Magi ging 01/09/2025 10:3 9 AM EDT Impressions 01/09/2025 10:41 AM EDT No acute pulmonary disease. Findings as above consistent with COPD. There is no pneumothorax. No change since the prior study performed 08/25/2023. Code 48679 -------- FINAL REPORT -------- Dictated By: Madhav Pineda Dictated Date: 01/09/2025 10:39 ET Assigned Physician: Madhav Pineda Reviewed and Electronically Signed By: Madhav Pineda Signed Date: 01/09/2025 10:41 ET Workstation ID: [id number] Transcribed By: Self Edit Transcribed Date: 01/09/2025 10:39 ET Narrative 01/09/2025 10:41 AM EDT HISTORY: The patient is a 44-year-old male smoker with right-sided chest pain 1 month following a fall. FINDINGS: PA and lateral radiographs of the chest demonstrate normal appearance of the bony structures. The cardiac and mediastinal contours are within normal limits. The lungs are hyperinflated with flattening of the diaphragm consistent with chronic obstructive pulmonary disease. There is no consolidation, mass, pulmonary vascular congestion, or pleural effusion. Procedure Note Madhav Pineda MD - 01/09/2025 HISTORY: The patient is a 44-year-old male smoker with right-sided chestpain 1 month following a fall. FINDINGS: PA and lateral radiographs of the chest demonstrate normalappearance of the bony structures. The cardiac and mediastinal contoursare within normal limits. The lungs are hyperinflated with flattening ofthe diaphragm consistent with chronic obstructive pulmonary disease.There is no consolidation, mass, pulmonary vascular congestion, or pleuraleffusion. IMPRESSION: No acute pulmonary disease. Findings as above consistent with COPD. Thereis no pneumothorax. No change since the prior study performed 08/25/2023. Code 32251 -------- FINAL REPORT -------- Dictated By: Madhav Pineda Dictated Date: 01/09/2025 10:39 ET Assigned Physician: Madhav Pineda Reviewed and Electronically Signed By: Madhav Pineda Signed Date: 01/09/2025 10:41 ET Workstation ID: [id number] Transcribed By: Self Edit Transcribed Date: 01/09/2025 10:39 ET Qian Duarte MD IMG XR PROCEDURES Final Result * Lipid panel (05/24/2019) LDL/HDL Ratio 3 [...] Insurance MEDICARE [place]ICAID [place] Care Teams Delivery Supervisor Relationship Specialty Start Date End Date Christianson, Nazanin, MD [address] [place] [address] PCP - General Family Medicine 09/06/24
--- OUTSIDE RECORDS SUMMARY | 2025-03-18 16:46 | XMS_ITS | Encounter Summary ---
Author Organization [employer] Address [address] [facility] [address] 7[address] [place] [address] Care Team Providers Care Renewable Energy Engineer Name Role Phone Nazanin Christianson MD Primary Care Provider [phone] Greer Clemons MD Unavailable + [phone] Reason for Visit * Reason Onset Date Comments Call back request 10/18/2023 Encounter Details Date Type Department Care Team (Late st Contact Info) Description 10/18/2023 Telephone [facility] MEDICINE [address] [place] [address] Nazanin Christianson MD [address] [place] [address] Call back request Social History Tobacco Use Types Packs/Day Years Used Date Smoking Tobacco: Every Day Cigarettes Passive Smoke Exposure: Never Smokeless Tobacco: Never Alcohol Use Standard Drinks/Week Comments Never 0 (1 standard drink = 0.6 oz pur e alcohol) Depression Answer Date Recorded Patient Health Questionnaire-9 Score 7 12/16/2022 Housing Stability Answer Date Recorded What is your housing situation today? 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 * Telephone Encounter - Justin Hernandez - 10/18/2023 4:29 PM EDT Tc from pt calling in regards to pulmonary function test. Pt had test done at [facility] ([address] [place] [address]), but after he had already got it done he received a call from [facility] for the same test. Pt wanted to clarify if there was a mistake in the addresses for the order. Please contact pt at [phone]. documented in this encounter Plan of Treatment Upcoming Encounters Date Type Department Care Team (Late st Contact Info) Description 03/20/2025 3:45 PM EST Office Visit [facility] MED & PEDS [address] [place] [address] Nazanin Christianson MD [address] [place] [address] documented as of this encounter Visit Diagnoses Not on filedocumented in this encounter Additional Health Concerns Assessment Noted Time PHQ-9 Depression Total Score: 7 12/17/19 23 1:05 PM EDT documented as of this encounter Care Teams Renewable Energy Engineer Relationship Specialty Start Date End Date Nazanin Christianson MD [address] [place] [address] PCP - General Family Medicine 12/16/22 Greer Clemons MD [address] [place] [address] [place] [address] Neurology 12/16/22 documented as of this encounter
--- OUTSIDE RECORDS SUMMARY | 2025-03-18 16:46 | XMS_ITS | Encounter Summary ---
Author Organization [employer] Address [address] [facility] 7t [place] [address] Care Team Providers Care Clin Asst Name Role Phone Nazanin Christianson MD Primary Care Provider [phone] Greer Clemons MD Unavailable + [phone] Encounter Details Date Type Department Care Team (Late st Contact Info) Description 01/10/2025 Orders Only [facility] [address] [place], [place] [phone] Provider, MD Santos Social History Tobacco Use Types Packs/Day Years [...] PM EDT documented as of this encounter Plan of Treatment Upcoming Encounters Date Type Department Care Team (Late st Contact Info) Description 03/20/2025 3:45 PM EST Office Visit [facility] MED & PEDS [address] [place] [address] Nazanin Christianson MD [address] [place] [address] documented as of this encounter Procedures Procedure Name Priority Date/Time Associated Diagnosis Comments XR CHEST 2 VIEWS Routine 01/09/2025 3:36 PM EDT documented in this encounter Results * XR Chest 2 Views (01/09/2025 3:36 PM EDT) Anatomical Region Laterality Modality Chest Radiographic Magi ging us Historical Provider MD SOLIS XR PROCEDURES Final R esult documented in this encounter Visit Diagnoses Not on filedocumented in this encounter Additional Health Concerns Assessment Noted Time PHQ-9 Depression Total Score: 0 01/27/20 24 8:38 AM EST documented as of this encounter Care Teams Clin Asst Relationship Specialty Start Date End Date Nazanin Christianson MD [address] [place] [address] PCP - General Family Medicine 12/16/22 Greer Clemons MD [address] [place] [address] Dr [place], PETER [address] Neurology 12/16/22 documented as of this encounter
--- OUTSIDE RECORDS SUMMARY | 2025-03-18 16:47 | XMS_ITS | Encounter Summary ---
Author Organization [employer] Address [address] [facility] 7t [place] [address] Care Team Providers Care Feeder Driver Name Role Phone Nazanin Christianson MD Primary Care Provider [phone] Greer Clemons MD Unavailable + [phone] Reason for Visit * Reason Onset Date Comments New Patient 11/04/2022 Encounter Details Date Type Department Care Team ([facility] st Contact Info) Description 11/04/2022 Telephone [facility] MEDICINE [address] [place], [place] [phone] Jass Don MD [address] [place], [place] [phone] New Patient Social History Tobacco Use Types [...] PAR Rafal Velasco called pt to Offer FLEXIBLE NANNY appt. Pt demographics and insurance information were verified. Pt reports the following medical conditions: Epilepsy Pt is not taking any medication at this time. Pt given FLEXIBLE NANNY appt with Dr. Nazanin Christianson on 12/16/2022 @ 1:00 pm. Pt will be sent appt reminder card and medical release form and agrees to complete and to return to medical records prior to FLEXIBLE NANNY appt. documented in this encounter Plan of Treatment Upcoming Encounters Date Type Department Care Team (Late st Contact Info) Description 03/20/2025 3:45 PM EST Office Visit [facility] MED & PEDS [address] [place] [address] Nazanin Christianson MD [address] [place] [address] documented as of this encounter Visit Diagnoses Not on filedocumented in this encounter Care Teams Feeder Driver Relationship Specialty Start Date End Date Nazanin Christianson MD [address] [place] [address] PCP - General Family Medicine 12/16/22 Greer Clemons MD [address] [place] [address] Neurology 12/16/22 Casie Ortiz MD [address] [place] [address] Surgeon Thoracic Surgery 08/25/23 08/30/23 documented as of this encounter
--- OUTSIDE RECORDS SUMMARY | 2025-03-18 16:47 | XMS_ITS | Encounter Summary ---
Author Organization [facility] Address [address] [facility] [address] 7[address] [place] [address] Care Team Providers Care Assistant Store Manager Sales Name Role Phone Nazanin Christianson MD Primary Care Provider [phone] Greer Clemons MD Unavailable + [phone] Reason for Visit * Reason Onset Date Comments ER Follow-up 08/26/2023 Encounter Details Date Type Department Care Team (Late st Contact Info) Description 08/26/[address] [facility] MEDICINE [address] [place] [address] Nazanin Christianson MD [address] [place] [address] ER Follow-up Social History Tobacco Use Types [...] pt in the chest. Pt went to [facility] [place] [facility] and got an MRI, C-ray, and [...] agreement with plan. Requested ED note from [facility] stat, fax confirmation received. * Telephone [...] Description 03/20/2025 3:45 PM EST Office Visit [facility] MED & PEDS [address] [place] [address] Nazanin Christianson MD [address] [place] [address] documented as of this encounter Visit Diagnoses Not on filedocumented in this encounter Additional Health Concerns Assessment Noted Time PHQ-9 Depression Total Score: 7 12/17/19 23 1:05 PM EDT documented as of this encounter Care Teams Assistant Store Manager Sales Relationship Specialty Start Date End Date Nazanin Christianson MD [address] [place] [address] PCP - General Family Medicine 12/16/22 Greer Clemons MD [address] [place] [address] Neurology 12/16/22 Casie Ortiz MD [address] [place] [address] Surgeon Thoracic Surgery 08/25/23 08/30/23 documented as of this encounter
--- OUTSIDE RECORDS SUMMARY | 2025-03-18 16:47 | XMS_ITS | Clinical Summary ---
Author Organization [employer] Address [address] [facility] 7t [place] [address] Care Team Providers Care Cda Teacher Name Role Phone Nazanin Christianson MD Primary Care Provider [phone] Greer Clemons MD Unavailable + [phone] Allergies Active Allergy Reactions Criticality Noted Date [...] Once per day. 30 tablet 5 5 Active pseudoephedrine ER (Sudafed-12 Hour) 120 MG [...] of the ankle, knee, and fibula at [facility] - Prescribe diclofenac for pain relief [...] prednisone for 5 days - Refer to stage electrician for further evaluation of possible COPD - [...] Center 01/27/2024 8:45 AM Nazanin Christianson MD [facility] Chronic cough 10/14/2023 Assessment & Plan [...] his incentive spirometer daily. Of note, called [place] office of Dr. Ortiz, per office, was [...] Plan (12/16/2022 1:42 PM EDT): Following in [facility] Neurology, reviewed meds, will send screening labs [...] Encounters Date Type Department Care Team Description 01/10/2025 Orders Only [facility] Information Management [address] [place] [address] Provider, MD Santos from Last 3 Months Immunizations Immunization Administration [...] the past 12 months, has t he [employer], [employer], oil or water company threatened to shut [...] 09/03/2024 8:58 AM EDT Plan of Treatment Upcoming Encounters Date Type Department Care Team (Late st Contact Info) Description 03/20/2025 3:45 PM EST Office Visit [facility] MED & PEDS [address] [place] [address] Nazanin Christianson MD [address] [place] [address] Health Maintenance Due Date Last Done Comments [...] - PCV) 1998 COVID-19 Vaccine (1 - 2024-2 6 season) 2024 Influenza Vaccine (#1) 2024 Depression [...] 2 VIEWS Routine 01/09/2025 3:36 PM EDT AMB REFERRAL TO PULMONOLOGY Routine 01/09/2025 Chronic obstructive pulmonary disease, unspecified COPD type (CMS/HCC) (HCC) HEPATITIS C ANTIBODY Routine 12/16/2022 1:48 PM EDT Encounter for health-related screening HIV ANTIBODY/ANTIGEN ([place] [facility]) Routine 12/16/2022 1:48 PM EDT LIPID PANEL, STANDARD Routine 12/16/2022 1:48 PM EDT Encounter for health-related screening from Last 3 Months or Most Recently Relevant to Health Maintenance Results * XR Chest 2 Views (01/09/2025 3:36 PM EDT) Anatomical Region Laterality Modality Chest Radiographic Magi ging Historical Provider IMG XR PROCEDURES Final R esult * Referral to Pulmonology (01/09/2025) Nazanin Christianson MD OUTPATIENT REFERRAL ORDERABLE S Final Result * Hepatitis C Ab (12/16/2022 1:48 PM EDT) Hepatitis C Antibody Nonreactive Nonreactive [facility] Comment:Antibodies to HCV no t detected; does not exclude early acuteHCV infection. Blood 12/16/2022 1:48 PM EDT 12/16/2022 2:13 PM EDT Nazanin Christianson MD LAB BLOOD ORDERABLES Final Re sult [facility] [address] [place] [phone] * HIV Ab/Ag ([facility]) (12/16/2022 1:48 PM EDT) HIV AB/AG Nonreactive Nonreactive [facility] Comment:HIV-1 p24 Ag and/or HIV-1/HIV-2 Ab not detected.A test result that is nonreactive does not exclude thepossibility of exposure to or infection with HIV-1 and/orHIV-2. Nonreactive results in this assay for individualswith prior exposure to HIV-1 and/or HIV-2 may be due toantigen and antibody levels that are below the limit ofdetection of this assay.The [employer] HIV Ag/Ab Combo assay result andsupplemental assay results should be interpreted inconjunction with the patient's clinical presentation,history and other laboratory results. If the results areinconsistent with clinical evidence, additional testing issuggested to confirm the result. 12/16/2022 1:48 PM EDT 12/16/2022 2:13 PM EDT Nazanin Christianson MD LAB BLOOD ORDERABLES Final Re sult Performing Organization Address [facility] Co de Phone Number [facility] [address] [place] [address] [phone] * (ABNORMAL) Lipid Panel, Standard (12/16/2022 1:48 PM EDT) Triglycerides 80 <150 mg/dL [facility] Comment:Desirable Triglyceri de: less than 150 mg/dLBorderline High Triglyceride 150-199 mg/dLHigh Triglyceride: 200-499 mg/dLVery High Triglyceride: greater than or equal to 5OO mg/dL Cholesterol 186 <200 mg/dL [facility] Comment:Desirable Cholestero l: less than 200 mg/dLBorderline High Cholesterol: 200-239 mg/dLHigh Cholesterol: greater than 239 mg/dL LDL Cholesterol Calculated 105(H) <100 mg/dL [facility] Comment:Desirable LDL: less than 100 mg/dLNear Optimal/Above Optimal LDL: 110- 129 mg/dLBorderline High LDL: 130-159 mg/dLHigh LDL: 160-189 mg/dLVery High LDL: greater than or equal to 190 mg/dL HDL Cholesterol 65 >40 mg/dL [facility] Comment:Desirable HDL: great er than 40 mg/dL Note: This HDL assay may give artificially low results in patients with liver disease. Blood Venous blood specimen / Unknown 12/16/2022 1:48 PM EDT 12/16/2022 2:13 PM EDT Nazanin Christianson MD LAB BLOOD ORDERABLES Final Re sult Performing Organization Address [facility]/ZIP Co de Phone Number [facility] [address] [place] [phone] from Last 3 Months or Most Recently Relevant to Health Maintenance Insurance [facility] STANDARD MEDICARE Care Teams Cda Teacher Relationship Specialty Start Date End Date Nazanin Christianson MD [address] [place] [address] [place] [address] PCP - General Family Medicine 12/16/22 Greer Clemons MD [address] [place] [address] [place] [address] Neurology 12/16/22
== END 2025-03-18 15:56 | disposition home or self-care (01) ==
PROVIDERS: Emergency Provider Emergency Medicine
DX: L02.212 Cutaneous abscess of back [any part, except buttock and flank] (principal); Z79.899 Other long term (current) drug therapy
CPT/HCPCS: 99282

== ENCOUNTER 2025-03-20 15:58 | Outpatient (REF) | payer MEDICARE, MEDICAID, SELFPAY ==
--- OUTSIDE RECORDS SUMMARY | 2025-03-20 15:45 | XMS_ITS | Encounter Summary ---
Author Organization [employer] Address [address] [facility] 7t [place] [address] Care Team Providers Care Salad Chef Name Role Phone Nazanin Christianson MD Primary Care Provider [phone] Greer Clemons MD Unavailable + [phone] Reason for Referral * Consultation (Urgent) - Pending Review Specialty Diagnoses / Procedures Referred By Sena miranda Referred To Contact General Surgery Diagnoses Abscess Nazanin Christianson MD [address] [place] [address] Phone: tel: fax: Referral ID Status Reason Start Date Expiration Date Visits Requested Visits Authorized [id number] Pending Review Specialty Services Required 03/20/2026 1 1 Encounter Details Date Type Department Care Team ([facility] st Contact Info) Description 03/20/2025 3:45 PM EST Office Visit [facility] MED & PEDS [address] [place] [address] Nazanin Christianson MD [address] [place] [address] Abscess (Primary Dx) Social History Tobacco Use Types Packs/Day Years [...] PM EDT documented as of this encounter Last Filed Vital Signs Vital Sign Reading Time Taken Comments Blood Pressure 130/86 03/20/2025 2:14 PM EST Pulse 84 03/20/2025 2:14 PM EST Temperature 36.4 C (97.6 F) 03/20/2025 2:14 PM EST Respiratory Rate 20 03/20/2025 2:14 PM EST Oxygen Saturation 98% 03/20/2025 2:14 PM EST Inhaled Oxygen Concentration - - Weight 106 kg (234 lb 3.2 oz) 03/20/2025 2:14 PM EST Height 193 cm (6' 4 ) 03/20/2025 2:14 PM EST Body Mass Index 28.51 03/20/2025 2:14 PM EST documented in this encounter Plan of Treatment Upcoming Encounters Date Type Department Care Team (Late st Contact Info) Description 03/25/2025 1:00 PM EST Clinical Support [facility] MED & PEDS [address] [place] [address] Scheduled Orders Name Type Priority Associated Diagnoses Orde r Schedule Wound Culture Microbiology Routine Abscess Ordered: 03/20/2025 Scheduled Referrals Name Type Priority Associated Diagnoses Orde r Schedule Referral to General Surgery Outpatient Referral Urgent Abscess Expected: 03/20/2025 (Approximate), Expires: 03/20/2026 documented as of this encounter Visit Diagnoses Diagnosis Abscess- Primary Cellulitis and abscess of unspecified site documented in this encounter Additional Health Concerns Assessment Noted Time PHQ-9 Depression Total Score: 0 01/27/20 24 8:38 AM EST documented as of this encounter Care Teams Salad Chef Relationship Specialty Start Date End Date Nazanin Christianson MD [address] [place] [address] PCP - General Family Medicine 12/16/22 Greer Clemons MD [address] [place] [address] [place] [address] Neurology 12/16/22 documented as of this encounter
--- OUTSIDE RECORDS SUMMARY | 2025-03-20 16:04 | XMS_ITS | Encounter Summary ---
Author Organization [employer] Address [address] [facility] 7t [place] [address] Care Team Providers Care Matte Cutter Name Role Phone Nazanin Christianson MD Primary Care Provider [phone] Greer Clemons MD Unavailable + [phone] Reason for Visit * Reason Onset Date Comments Nurse Triage 03/20/2025 Encounter Details Date Type Department Care Team ([facility] st Contact Info) Description 03/20/2025 Telephone [facility] [address] [place] [address] Nazanin Christianson MD [address] [place] [address] Nurse Triage Social History Tobacco Use Types Packs/Day Years [...] t he electric, gas, oil or water [email or web address] threatened to shut off services in your [...] encounter Miscellaneous Notes * Telephone Encounter - Sarah Catalan RN - 03/20/2025 11:48 AM EST T/C to pt re: cyst on back. Pt states that he has had a cyst on his back since he was 13 years old that has always been the size of a grain of rice. Pt took his girlfriend to the ER last week and believes he irritated it during this ER visit and now in 7days time the cyst has grow to the size of a golfball and skin is irritated and red. Pt reports 2/10 pain and states that he was seen in [facility] ER last night, they attempted to drain the cyst but were unsuccessful. They informed pt that he will need a referral to surgery for removal. Pt already has appointment with Dr. Christianson today at 3:30pm to discuss referral. Pt is taking antibiotics as directed by the ER. * Telephone Encounter - Sandeep Good - 03/20/2025 10:53 AM EST Symptom: Abscess - Caller Reports Outcome: Schedule an urgent appointment (within 4 hours) or talk to a nurse or provider soon Reason: Growing rapidly The caller accepted this outcome. Contact pt at [phone] documented in this encounter Plan of Treatment Upcoming Encounters Date Type Department Care Team (Late st Contact Info) Description 03/25/2025 1:00 PM EST Clinical Support [facility] MED & PEDS [address] [place] [address] documented as of this encounter Visit Diagnoses Not on filedocumented in this encounter Additional Health Concerns Assessment Noted Time PHQ-9 Depression Total Score: 0 01/27/20 24 8:38 AM EST documented as of this encounter Care Teams Matte Cutter Relationship Specialty Start Date End Date Nazanin Christianson MD [address] [place] [address] [place] [address] PCP - General Family Medicine 12/16/22 Greer Clemons MD [address] [place] [address] [place] [address] Neurology 12/16/22 documented as of this encounter
--- OUTSIDE RECORDS SUMMARY | 2025-03-20 16:04 | XMS_ITS | Encounter Summary ---
Author Organization [employer] Address 75 [facility] 7t [place] [address] Care Team Providers Care Collar Turner Name Role Phone Nazanin Christianson MD Primary Care Provider [phone] Greer Clemons MD Unavailable + [phone] Encounter Details Date Type Department Care Team (Late st Contact Info) Description 01/10/2025 Orders Only [facility] [address] [place], [place] [phone] Provider, MD Santos Social History Tobacco Use [...] Description 03/25/2025 1:00 PM EST Clinical Support [facility] MED & PEDS [address] [place] [address] documented as of this encounter Procedures Procedure Name Priority Date/Time Associated Diagnosis Comments XR CHEST 2 VIEWS Routine 01/09/2025 3:36 PM EDT documented in this encounter Results * XR Chest 2 Views (01/09/2025 3:36 PM EDT) Anatomical Region Laterality Modality Chest Radiographic Magi ging Historical Provider MD SOLIS XR PROCEDURES Final R esult documented in this encounter Visit Diagnoses Not on filedocumented in this encounter Additional Health Concerns Assessment Noted Time PHQ-9 Depression Total Score: 0 01/27/20 24 8:38 AM EST documented as of this encounter Care Teams Collar Turner Relationship Specialty Start Date End Date Nazanin Christianson MD [address] [place] [address] PCP - General Family Medicine 12/16/22 Greer Clemons MD [address] [place] [address] [place] [address] Neurology 12/16/22 documented as of this encounter
--- OUTSIDE RECORDS SUMMARY | 2025-03-20 16:04 | XMS_ITS | Encounter Summary ---
Author Organization [employer] Address [address] [facility] 7t [place] [address] Care Team Providers Care Php Programmer Name Role Phone Nazanin Christianson MD Primary Care Provider [phone] Greer Clemons MD Unavailable + [phone] Reason for Visit * Reason Onset Date Comments New Patient 11/04/2022 Encounter Details Date Type Department Care Team ([facility] st Contact Info) Description 11/04/2022 Telephone [facility] [address] [place], [place] [phone] Jass Don MD [address] [place], [place] [phone] New Patient Social History Tobacco Use Types [...] PAR Rafal Velasco called pt to Offer CASHIER ASSISTANT appt. Pt demographics and insurance information were verified. Pt reports the following medical conditions: Epilepsy Pt is not taking any medication at this time. Pt given CASHIER ASSISTANT appt with Dr. Nazanin Christianson on 12/16/2022 @ 1:00 pm. Pt will be sent appt reminder card and medical release form and agrees to complete and to return to medical records prior to CASHIER ASSISTANT appt. documented in this encounter Plan of Treatment Upcoming Encounters Date Type Department Care Team (Late st Contact Info) Description 03/25/2025 1:00 PM EST Clinical Support [facility] MED & PEDS [address] [place] [address] documented as of this encounter Visit Diagnoses Not on filedocumented in this encounter Care Teams Php Programmer Relationship Specialty Start Date End Date Nazanin Christianson MD [address] [place] [address] PCP - General Family Medicine 12/16/22 Greer Clemons MD [address] [place] [address] Neurology 12/16/22 Casie Ortiz MD [address] [place] [address] Surgeon Thoracic Surgery 08/25/23 08/30/23 documented as of this encounter
--- OUTSIDE RECORDS SUMMARY | 2025-03-20 16:04 | XMS_ITS | Clinical Summary ---
Author Organization [employer] Address 75 [facility] 7t [place] [address] Care Team Providers Care Academic Program Specialist Name Role Phone Nazanin Christianson MD Primary Care Provider [phone] Greer Clemons MD Unavailable + [phone] Allergies Active Allergy Reactions Criticality Noted Date [...] obstructive pulmonary disease, unspecified COPD type (CMS/HCC) ([facility]) Place 1 capsule (18 mcg) into inhaler and inhale in the morning. 30 capsule 11 4 Active folic acid (Folvite) 1 MG tablet Take 1 tablet (1,000 mcg) by mouth Once per day. 120 tablet 3 4 Active albuterol 108 (90 Base) MCG/ACT inhalerIndicatio ns:Chronic obstructive pulmonary disease, unspecified COPD type (CMS/HCC) ([facility]) Inhale 2 puffs every 4 (four) [...] for sleep. 28 tablet 1 5 Active sulfamethoxazole -trimethoprim (Bactrim DS) 800-160 MG tablet Take 1 tablet by mouth 2 times daily. 5 Active Umeclidinium-Clementina anterol 62.5-25 MCG/ACT aerosol powder Inhale 1 puff Once per day. 5 01/10/20 26 Active budesonide (Pulmicort Flexhaler) 90 MCG/ACT inhaler INHALE 1 PUFF IN THE MORNING AND AT BEDTIME . RINSE MOUTH WITH WATER AFTER USE TO REDUCE AFTER TASTE AND INCIDENCE OF CANDIDIASIS. DO NOT SWALLOW 5 Active oxyCODONE-acetam inophen (Percocet) 10-325 MG tabletIndication s:Abscess Take 1 tablet by mouth every 6 (six) hours if needed for severe pain for up to 5 days. 15 tablet 1203/25/19 26 Active Hospital, Clinic, or Other Facility Administered Medication Ordered Dose Route Frequency Start Date End Date Status lidocaine (Xylocaine) 1 % injection 40 mgIndications:Abscess 40 mg IJ Once 03/20/2025 Act law Active Problems Problem Noted Date Diagnosed Date [...] of the ankle, knee, and fibula at [facility] - Prescribe diclofenac for pain relief [...] prednisone for 5 days - Refer to chucking and sawing machine operator for further evaluation of possible COPD - [...] Center 01/27/2024 8:45 AM Nazanin Christianson MD [facility] Chronic cough 10/14/2023 Assessment & Plan (10/14/2023 [...] his incentive spirometer daily. Of note, called [place] office of Dr. Ortiz, per office, was [...] Consider x ray if persistent. Seizure disorder ([facility]) 12/16/2022 Assessment & Plan (07/31/2024 9:45 AM EDT): Following with neurology, monitor labs for AED. Assessment & Plan (12/16/2022 1:42 PM EDT): [place] [facility] [place], reviewed meds, will send screening labs [...] Encounters Date Type Department Care Team Description 03/20/2025 3:45 PM EST Office Visit [facility] [address] [place] [address] Naaznin Christianson MD Abscess (Primary Dx) 03/20/2025 Travel 03/20/2025 Telephone [facility] [address] [place] [address] Nazanin Christianson MD Nurse Triage 03/19/2025 Telephone [facility] [address] [place] [address] Nazanin Christianson MD chart prep 01/10/2025 Orders Only [employer] [facility] [address] [place], [place] [phone] Provider, MD Santos from Last 3 Months [...] your housing situation today? I have david katalina 01/20/[address] you li [...] Mass Index 28.51 03/20/2025 2:14 PM EST Plan of Treatment Upcoming Encounters Date Type Department Care Team (Late st Contact Info) Description 03/25/2025 1:00 PM EST Clinical Support [facility] [address] [place] [address] Health Maintenance Due Date Last Done Comments [...] of 2 - PCV) 1998 COVID-19 Vaccine ( - 2024-2 6 season) 2024 Influenza Vaccine (#1) 2024 Depression Screening 01/26/2025 01/27/2024, 01/27/2024 Alcohol/Substance Use Screening 07/13/2025 07/13/2024 SDOH Screening 08/23/2025 08/23/2024 Disability Screening 09/03/2025 09/03/2024 Tobacco Screening 03/20/2026 03/20/2025 DTaP/Tdap/Td Vaccines (2 - T d or [...] Chest Radiographic Magi ging us Historical Provider IMG XR PROCEDURES Final R esult * Referral to Pulmonology (01/09/2025) Naznain Christianson MD OUTPATIENT REFERRAL ORDERABLE S Final Result * Hepatitis C Ab (12/16/2022 1:48 PM EDT) Hepatitis C Antibody Nonreactive Nonreactive [facility] Comment:Antibodies to HCV no t detected; does not exclude early acuteHCV infection. Blood 12/16/2022 1:48 PM EDT 12/16/2022 2:13 PM EDT us Nazanin Christianson MD LAB BLOOD ORDERABLES Final Re sult Performing Organization Address [facility]/ZIP Co de Phone Number [facility] [address] [place] [phone] * HIV Ab/Ag ([facility]) (12/16/2022 1:48 PM EDT) [facility] HIV AB/AG Nonreactive Nonreactive [facility] Comment:HIV-1 p24 Ag and/or HIV-1/HIV-2 Ab not detected.A test result that is nonreactive does not exclude thepossibility of exposure to or infection with HIV-1 and/orHIV-2. Nonreactive results in this assay for individualswith prior exposure to HIV-1 and/or HIV-2 may be due toantigen and antibody levels that are below the limit ofdetection of this assay.[employer] HIV Ag/Ab Combo assay result andsupplemental assay results should be interpreted inconjunction with the patient's clinical presentation,history and other laboratory results. If the results areinconsistent with clinical evidence, additional testing issuggested to confirm the result. 12/16/2022 1:48 PM EDT 12/16/2022 2:13 PM EDT us Nazanin Christianson MD LAB BLOOD ORDERABLES Final Re sult Performing Organization Address [facility] Co de Phone Number [facility] [address] [place] [phone] * (ABNORMAL) Lipid Panel, Standard (12/16/2022 1:48 PM EDT) [facility] Triglycerides 80 <150 mg/dL [facility] Comment:Desirable Triglyceri de: less than 150 mg/dLBorderline High Triglyceride 150-199 mg/dLHigh Triglyceride: 200-499 mg/dLVery High Triglyceride: greater than or equal to 5OO mg/dL Cholesterol 186 <200 mg/dL [facility] Comment:Desirable Cholestero l: less than 200 mg/dLBorderline High Cholesterol: 200-239 mg/dLHigh Cholesterol: greater than 239 mg/dL LDL Cholesterol Calculated 105(H) <100 mg/dL [facility] Comment:Desirable LDL: less than 100 mg/dLNear Optimal/Above Optimal LDL: 110- 129 mg/dLBorderline High LDL: 130-159 mg/dLHigh LDL: 160-189 mg/dLVery High LDL: greater than or equal to 190 mg/dL HDL Cholesterol 65 >40 mg/dL [facility] Comment:Desirable HDL: great er than 40 mg/dL Note: This HDL assay may give artificially low results in patients with liver disease. Blood Venous blood specimen / Unknown 12/16/2022 1:48 PM EDT 12/16/2022 2:13 PM EDT us Nazanin Christianson MD LAB BLOOD ORDERABLES Final Re sult [facility] [address] [place] [phone] from Last 3 Months or Most Recently Relevant to Health Maintenance Insurance [facility] STANDARD MEDICARE Care Teams Academic Program Specialist Relationship Specialty Start Date End Date Nazanin Christianson MD [address] [place] [address] [place] [address] PCP - General Family Medicine 12/16/22 Greer Clemons MD [address] [place] [address] [place] [address] Neurology 12/16/22
--- OUTSIDE RECORDS SUMMARY | 2025-03-20 16:04 | XMS_ITS | Encounter Summary ---
Author Organization [employer] Address [address] [facility] [address] 7t [place] [address] Care Team Providers Care Ripsawyer Name Role Phone Nazanin Christianson MD Primary Care Provider [phone] Greer Clemons MD Unavailable + [phone] Reason for Visit * Reason Onset Date Comments Call back request 10/18/2023 Encounter Details Date Type Department Care Team (Late st Contact Info) Description 10/18/2023 Telephone [facility] [address] [place] [address] Nazanin Christianson MD [address] [place] [address] Call back request Social History Tobacco Use [...] return call * Telephone Encounter - Zechariahsarah Rod Johnson - 10/24/2023 8:55 AM EDT Tc from pt requesting status manager labor relations. * Telephone Encounter - Justin Hernandez - 10/18/2023 4:29 PM EDT Tc from pt calling in regards to pulmonary function test. Pt had test done at [facility] ([address] [place] [address]), but after he had already got it done he received a call from [facility] for the same test. Pt wanted to clarify if there was a mistake in the addresses for the order. Please contact pt at [phone]. documented in this encounter Plan of Treatment Upcoming Encounters Date Type Department Care Team (Late st Contact Info) Description 03/25/2025 1:00 PM EST Clinical Support [facility] MED & PEDS [address] [place] [address] documented as of this encounter Visit Diagnoses Not on filedocumented in this encounter Additional Health Concerns Assessment Noted Time PHQ-9 Depression Total Score: 7 12/17/19 23 1:05 PM EDT documented as of this encounter Care Teams Ripsawyer Relationship Specialty Start Date End Date Nazanin Christianson MD [address] [place] [address] [place] [address] PCP - General Family Medicine 12/16/22 Greer Clemons MD [address] [place] [address] [place] [address] Neurology 12/16/22 documented as of this encounter
--- OUTSIDE RECORDS SUMMARY | 2025-03-20 16:04 | XMS_ITS | Encounter Summary ---
Author Organization [employer] Address [address] [facility] [address] 7t [place] [address] Care Team Providers Care Boring Machine Operator Vertical Name Role Phone Nazanin Christianson MD Primary Care Provider [phone] Greer Clemons MD Unavailable + [phone] Reason for Visit * Reason Onset Date Comments ER Follow-up 08/26/2023 Encounter Details Date Type Department Care Team (Late st Contact Info) Description 08/26/2023 Telephone [facility] [address] [place] [address] Nazanin Christianson MD [address] [place] [address] ER Follow-up Social History Tobacco Use Types [...] pt in the chest. Pt went to [facility] and got an MRI, C-ray, and [...] agreement with plan. Requested ED note from [facility] stat, fax confirmation received. * Telephone Encounter - Rafal Johnson - 08/29/2023 9:08 AM EDT Tc from pt returning call requesting status on ER Follow up appt. * Telephone Encounter - Benoit Urrutia - 08/26/2023 9:49 AM EDT Patient calling to report ED visit on : Date: 08/24 Hospital: [facility] Seen for: Fractured Sternum Patient advised will forward to team nurse for follow up documented in this encounter Plan of Treatment Upcoming Encounters Date Type Department Care Team (Late st Contact Info) Description 03/25/2025 1:00 PM EST Clinical Support [facility] & PEDS [address] [place] [address] documented as of this encounter Visit Diagnoses Not on filedocumented in this encounter Additional Health Concerns Assessment Noted Time PHQ-9 Depression Total Score: 7 12/17/19 1:05 PM EDT documented as of this encounter Care Teams Boring Machine Operator Vertical Relationship Specialty Start Date End Date Nazanin Christianson MD [address] [place] [address] PCP - General Family Medicine 12/16/22 Greer Clemons MD [address] [place] [address] Neurology 12/16/22 Casie Ortiz MD [address] [place] [address] Surgeon Thoracic Surgery 08/25/23 08/30/23 documented as of this encounter
--- OUTSIDE RECORDS SUMMARY | 2025-03-20 16:04 | XMS_ITS | Encounter Summary ---
Author Organization [employer] Address [address] [facility] [address] 7t [place] [address] Care Team Providers Care Director Dance Name Role Phone Nazanin Christianson MD Primary Care Provider Greer Clemons MD Unavailable + [phone] Encounter Details Date Type Department Care Team (Latest Contact Info) Description 03/20/2025 Travel Social History Tobacco Use Types Packs/Day Years [...] is your housing situation today? I have davidtayler darden 01/20/[address] you [...] Description 03/25/2025 1:00 PM EST Clinical Support [facility] MED & PEDS [address] [place] [address] documented as of this encounter Visit Diagnoses Not on filedocumented in this encounter Additional Health Concerns Assessment Noted Time PHQ-9 Depression Total Score: 0 01/27/20 24 8:38 AM EST documented as of this encounter Care Teams Director Dance Relationship Specialty Start Date End Date Nazanin Christianson MD [address] [place] [address] PCP - General Family Medicine 12/16/22 Greer Clemons MD [address] [place] [address] [place] [address] Neurology 12/16/22 documented as of this encounter
--- OUTSIDE RECORDS SUMMARY | 2025-03-20 16:04 | XMS_ITS | Encounter Summary ---
Author Organization [employer] Address [address] [facility] 7t [place] [address] Care Team Providers Care Landscape Engineer Name Role Phone Nazanin Christianson MD Primary Care Provider [phone] Greer Clemons MD Unavailable + [phone] Reason for Visit * Reason Onset Date Comments chart prep 03/19/2025 Encounter Details Date Type Department Care Team ([facility] st Contact Info) Description 03/19/[address] [facility] PEDS [address] [place] [address] Nazanin Christianson MD [address] [place] [address] chart prep Social History Tobacco Use Types Packs/Day Years [...] encounter Miscellaneous Notes * Telephone Encounter - Ce Ruth MA - 03/19/2025 1:52 PM EST Chart Prep Labs: not done Images: done Referrals: complete Vaccines due: Covid, Flu, and PCV20 Screenings: colonoscopy Overdue care gaps: PHQ-9 documented in this encounter Plan of Treatment Upcoming Encounters Date Type Department Care Team (Late st Contact Info) Description 03/25/2025 1:00 PM EST Clinical Support [facility]EDS [address] [facility] [place] [facility] [place] [address] documented as of this encounter Visit Diagnoses Not on filedocumented in this encounter Additional Health Concerns Assessment Noted Time PHQ-9 Depression Total Score: 0 01/27/20 24 8:38 AM EST documented as of this encounter Care Teams Landscape Engineer Relationship Specialty Start Date End Date [facility] [address] [facility] [address] PCP - General Family Medicine 12/16/22 Greer Clemons MD [address] [place] [address] [place] [address] Neurology 12/16/22 documented as of this encounter
--- OUTSIDE RECORDS SUMMARY | 2025-03-20 16:04 | XMS_ITS | Clinical Summary ---
Author Organization [facility] Address [address] [place] [address] Phone Care Team Providers Care Specialty Foods Cook Name Role Phone Nazanin Christianson MD Primary Care Provider [phone] Allergies Active Allergy Reactions Criticality Noted Date [...] - 01/09/2025 11:59 PM EDT Hospital Encounter [facility] Xray [address] [place] [address] Dyspnea, unspecified Discharge Disposition: Home or Self Care 01/09/2025 9:00 AM EDT Consult Pulmonology - [place] [address] [facility] [address] [place] [phone] Qian Duarte MD Dyspnea, unspecified type (Primary Dx); Chronic obstructive pulmonary disease, unspecified COPD type (CMS/HCC V24, CMS/HCC V28); Closed fracture of one rib of right side with routine healing, subsequent encounter; Smoker 01/09/2025 Results Follow-Up Pulmonology - [place] [address] [facility] [address] [place] [phone] Qian Duarte MD from Last 3 Months Surgical History Surgery Date Site/Laterality Comments OTHER SURGICAL HISTORY PROCEDURE: [place] CRANIECTOMY HMTMA SUPRATENTORIAL EXTRA/SUBDURAL WISDOM TOOTH EXTRACTION PROCEDURE: HISTORICAL WISDOM TEETH EXTRACTION Medical History Medical History Date Comments Seizures (CMS/HCC V24, CMS/HCC V28) DX:Seizures ([facility]); COMMENT: grand-mal Asthma DX:Asthma Family History [...] 10:15 AM EDT Office Visit Pulmonology - [address] [place] [address] Qian Duarte MD [facility] [place] [address] Health Maintenance Due Date Last [...] since the prior study performed 08/25/2023. Code 12685 -------- FINAL REPORT -------- Dictated By: Madhav Pineda Dictated Date: 01/09/2025 10:39 ET Assigned Physician: Madhav Pineda Reviewed and Electronically Signed By: Madhav Pineda Signed Date: 01/09/2025 10:41 ET Workstation ID: [id number] Transcribed By: Self Edit Transcribed Date: 01/09/2025 [...] since the prior study performed 08/25/2023. Code 09732 -------- FINAL REPORT -------- Dictated By: Madhav Pineda Dictated Date: 01/09/2025 10:39 ET Assigned Physician: Madhav Pineda Reviewed and Electronically Signed By: Madhav Pineda Signed Date: 01/09/2025 10:41 ET Workstation ID: [id number] Transcribed By: Self Edit Transcribed Date: 01/09/2025 [...] Insurance MEDICARE [place]ICAID [place] Care Teams Specialty Foods Cook Relationship Specialty Start Date End Date Christainson, Nazanin, MD [address] [place] [address] PCP - General Family Medicine 09/06/24
== END 2025-03-20 15:59 | disposition home or self-care (01) ==
LOC: HO.CHCLNP 15:58
PROVIDERS: Visit Provider Family Medicine
DX: L02.91 Cutaneous abscess, unspecified (principal)
CPT/HCPCS: 87070; 87205